=== PATIENT | female | born 1970 | race Caucasian/White ===

== ENCOUNTER → 2017-03-16 | Outpatient (CLI) | payer BC ==
[~2017-03-16] MED LIST: AMBIEN 5MG TABLE5 MG PO; AMBIEN10 MG PO; FARXIGA10 PO; LEVEMIR FLEXPEN SQ; LISINOPRIL5 MG PO; METFORMIN500 MG PO; NORCO 325 MG-51 TAB PO; PRAVASTATIN20 MG PO; PROZAC10 MG PO; PROZAC20 MG PO; SEASONALE 30 MC1 TAB PO; TRESIBA FL100 UNIT/1 PO; VICTOZA6 MG/ML SQ; WELLBUTRIN XL150 MG PO
== END ==
LOC: MC.RAD 07:00
DX: Z12.31 Encounter for screening mammogram for malignant neoplasm of breast (principal)

== ENCOUNTER → 2018-04-04 | Outpatient (CLI) | payer BC ==
[~2018-04-04] MED LIST changes: -AMBIEN 5MG TABLE5 MG PO; -FARXIGA10 PO; -NORCO 325 MG-51 TAB PO; -TRESIBA FL100 UNIT/1 PO; -VICTOZA6 MG/ML SQ; -WELLBUTRIN XL150 MG PO
== END ==
LOC: MC.RAD 16:59
DX: Z12.31 Encounter for screening mammogram for malignant neoplasm of breast (principal)

== ENCOUNTER 2018-09-30 05:31 | Day surgery (SDC) | payer BC ==
[~2018-09-30] VITALS: Ht 172.7 cm; Wt 101.0 kg
[2018-09-30 06:05] VITALS: BP 141/84; PULSE 90; TEMP 98.7
[2018-09-30] MEDS ORDERED: AMBIEN 5MG TABLE5 MG PO (06:14)
[2018-09-30] MEDS ORDERED: WELLBUTRIN XL150 MG PO (06:16)
[2018-09-30] MEDS ORDERED: FARXIGA10 PO (06:16)
[2018-09-30] MEDS ORDERED: NORCO 325 MG-51 TAB PO (06:17)
[2018-09-30] MEDS ORDERED: TRESIBA FL100 UNIT/1 PO (06:17)
[2018-09-30] MEDS ORDERED: VICTOZA6 MG/ML SQ (06:18)
--- NOTE | 2018-09-30 06:19 | NUR ---
TO RM AT 0540- CALL LIGHT IN REACH DAUGHTER AT BEDSIDE
[2018-09-30 07:20] VITALS: BP 127/81; PULSE 93; TEMP 99.5
--- NOTE | 2018-09-30 07:20 | NUR ---
TO RM 8 PER CART FROM PACU- FOLLOWING L SHOULDER MANIPULATION. ALERT ORIENTED X3, TALKING WITH STAFF AND FAMILY. ICE OVER LEFT SHOULDER AND ELEVATED PER PATIENT COMFORT ON PILLOW.
[2018-09-30 07:35] VITALS: BP 143/89; PULSE 85
--- NOTE | 2018-09-30 07:35 | NUR ---
RECEIVED SHIMON AND MONICA, FAMILY AT BEDSIDE.
--- NOTE | 2018-09-30 08:00 | NUR ---
ATE 100% AND TOLERATED WELL. RECEIVED DISCHARGE INSTRUCTIONS AND VERBALIZED UNDERSTANDING. DISCONTINUED IV AND INT- CATHETER INTACT. COVERED IV SITE WITH COTTON BALL AND COBAN.
--- NOTE | 2018-09-30 08:15 | NUR ---
DISCHARGED PER WC BY NURSING STAFF TO PRIVATE CAR IN CARE OF DAUGHTER.
== END 2018-09-30 08:27 | disposition home or self-care (01) ==
LOC: SDCO 05:31
DX: M24.612 Ankylosis, left shoulder (principal); Z88.2 Allergy status to sulfonamides; M19.90 Unspecified osteoarthritis, unspecified site; J45.909 Unspecified asthma, uncomplicated; E11.9 Type 2 diabetes mellitus without complications; Z79.4 Long term (current) use of insulin; E78.00 Pure hypercholesterolemia, unspecified; E78.5 Hyperlipidemia, unspecified; I10 Essential (primary) hypertension; Z90.49 Acquired absence of other specified parts of digestive tract; Z87.891 Personal history of nicotine dependence; Z83.3 Family history of diabetes mellitus; Z83.79 Family history of other diseases of the digestive system; Z84.1 Family history of disorders of kidney and ureter; F32.9 Major depressive disorder, single episode, unspecified; F41.9 Anxiety disorder, unspecified; E66.9 Obesity, unspecified
CPT/HCPCS: J0330; J2704; J3010; J3301; J7030

== ENCOUNTER → 2019-05-30 | Outpatient (CLI) | payer BC ==
[~2019-05-30] MED LIST changes: +AMBIEN 5MG TABLE5 MG PO; +FARXIGA10 PO; +NORCO 325 MG-51 TAB PO; +TRESIBA FL100 UNIT/1 PO; +VICTOZA6 MG/ML SQ; +WELLBUTRIN XL150 MG PO
== END ==
LOC: MC.RAD 09:30
DX: Z12.31 Encounter for screening mammogram for malignant neoplasm of breast (principal)

== ENCOUNTER → 2020-06-01 | Outpatient (CLI) | payer BC | LOC: MC.RAD 15:55 | DX: Z12.31 Encounter for screening mammogram for malignant neoplasm of breast (principal); N63.10 Unspecified lump in the right breast, unspecified quadrant ==

== ENCOUNTER → 2020-06-14 | Outpatient (CLI) | payer BC | LOC: MC.RAD 14:00 | DX: N63.10 Unspecified lump in the right breast, unspecified quadrant (principal) ==

== ENCOUNTER → 2020-12-13 | Outpatient (CLI) | payer BC | LOC: MC.RAD 07:00 | DX: N63.10 Unspecified lump in the right breast, unspecified quadrant (principal) ==

== ENCOUNTER → 2021-07-14 | Outpatient (CLI) | payer BC | LOC: MC.RAD 07:00 | DX: Z12.31 Encounter for screening mammogram for malignant neoplasm of breast (principal) ==

== ENCOUNTER 2023-07-18 15:46 | Outpatient (RCR) | payer BC ==
[2023-07-18 16:19] VITALS: BP 109/72; PULSE 62; TEMP 98.1
[2023-07-18] MEDS ORDERED: TOPROL XL 25MG25 MG PO (16:40)
[2023-07-18] MEDS ORDERED: ASPIRIN 81M81 MG/TA2 PO (16:40)
[2023-07-18] MEDS ORDERED: FIBERCON PO (16:40)
[2023-07-18] MEDS ORDERED: LIPITOR 80MG80 MG PO (16:41)
[2023-07-18] MEDS ORDERED: PRILOSEC 20MG20 MG PO (16:41)
[2023-07-18] MEDS ORDERED: FERROUSAL325 MG PO (16:41)
[2023-07-18] MEDS ORDERED: CYMBALTA 60MG60 MG PO (16:42)
[2023-07-18] MEDS ORDERED: MOUNJARO7.5 MG/0.5 SQ (16:42)
--- NOTE | 2023-07-20 09:42 | NUR ---
Pt called and cancelled futher appointments.Per pt Dr elizabeth.
== END 2023-07-20 09:43 ==
LOC: EUO 15:46
DX: D50.9 Iron deficiency anemia, unspecified (principal)
CPT/HCPCS: J1756; J7050

== ENCOUNTER → 2023-09-20 | Outpatient (CLI) | payer BC ==
[~2023-09-20] MED LIST changes: +ASPIRIN 81M81 MG/TA2 PO; +CYMBALTA 60MG60 MG PO; +FERROUSAL325 MG PO; +FIBERCON PO; +LIPITOR 80MG80 MG PO; +MOUNJARO7.5 MG/0.5 SQ; +PRILOSEC 20MG20 MG PO; +TOPROL XL 25MG25 MG PO
== END ==
LOC: MC.RAD 15:15
DX: Z12.31 Encounter for screening mammogram for malignant neoplasm of breast (principal)